=== PATIENT | male | born 1965 | race African-American/Black ===

== ENCOUNTER 2017-09-24 16:43 | Emergency (ER) | payer OTHER ==
[~2017-09-24] VITALS: Ht 175.3 cm; Wt 136.6 kg
[2017-09-24 16:55] VITALS: BP 167/103
== END 2017-09-24 17:47 | disposition home or self-care (01) ==
LOC: ED 16:43
DX: L30.9 Dermatitis, unspecified (principal); G89.29 Other chronic pain; M54.9 Dorsalgia, unspecified
CPT/HCPCS: J1100

== ENCOUNTER 2019-08-28 08:27 | Emergency (ER) | payer OTHER ==
[~2019-08-28] VITALS: Ht 175.3 cm; Wt 136.1 kg
[2019-08-28 08:34] VITALS: Ht 175.3 cm; Wt 136.1 kg
[2019-08-28 09:40] VITALS: BP 150/95
== END 2019-08-28 10:15 | disposition home or self-care (01) ==
LOC: ED 08:27
DX: S93.602A Unspecified sprain of left foot, initial encounter (principal); G89.29 Other chronic pain; M54.9 Dorsalgia, unspecified; Z98.890 Other specified postprocedural states; X58.XXXA Exposure to other specified factors, initial encounter; Y93.89 Activity, other specified; Y92.89 Other specified places as the place of occurrence of the external cause; Y99.8 Other external cause status
CPT/HCPCS: J1885; Q0092

== ENCOUNTER 2019-11-02 19:14 | Emergency (ER) | payer OTHER ==
[~2019-11-02] VITALS: Ht 175.3 cm; Wt 139.7 kg
[2019-11-02 19:30] VITALS: Ht 175.3 cm; Wt 139.7 kg
[2019-11-02 21:52] VITALS: BP 160/107
== END 2019-11-02 21:28 | disposition home or self-care (01) ==
LOC: ED 19:14
DX: G89.29 Other chronic pain (principal); M54.40 Lumbago with sciatica, unspecified side; M79.672 Pain in left foot
CPT/HCPCS: J1885